=== PATIENT | female | born 1970 | race Caucasian/White ===

== ENCOUNTER 2017-08-18 18:49 | Emergency (ER) | payer BC, MEDICAID ==
[~2017-08-18 18:49] MED LIST: CYCLOBENZAPRINE5 MG PO; NAPROXEN375 MG PO; ZOC10 PO
[2017-08-18 22:36] VITALS: BP 133/73
== END 2017-08-18 22:36 | disposition home or self-care (01) ==
LOC: ED 18:49
DX: J06.9 Acute upper respiratory infection, unspecified (principal)
CPT/HCPCS: J7613; J7644

== ENCOUNTER 2018-12-16 14:21 | Emergency (ER) | payer MEDICAID ==
[~2018-12-16] VITALS: Ht 152.4 cm; Wt 72.6 kg
[2018-12-16 18:02] LABS: BASOPHIL % 0.6 % (0-2); PLATELET COUNT 221 x10^3mcL (130-400); RED CELL DISTRIBUTION WIDTH 13.5 % (11.5-14.5)
[2018-12-16 18:11] LABS: CALCIUM 8.9 mg/dL (8.5-10.1); CARBON DIOXIDE 29.2 mmol/L (21-32); CHLORIDE SERUM 102 mmol/L (98-107); CREATININE SERUM 0.6 mg/dL (0.6-1.0); GFR1 > 60 mL/min; GLUCOSE SERUM 108 mg/dL (74-106); POTASSIUM SERUM 4.5 mmol/L (3.5-5.1); SODIUM SERUM 138 mmol/L (136-145)
[2018-12-16 18:17] LABS: ALBUMIN 3.8 g/dL (3.4-5.0); ALKALINE PHOSPHATASE 72 U/L (46-116); ALT/SGPT 27 U/L (14-59); AST/SGOT 18 U/L (15-37); BILIRUBIN TOTAL 0.3 mg/dL (0.20-1.00); TOTAL PROTEIN, SERUM 7.6 g/dL (6.4-8.2)
[2018-12-16 21:10] VITALS: BP 127/71
== END 2018-12-16 21:11 | disposition home or self-care (01) ==
LOC: ED 14:21
PROVIDERS: Specialist
DX: M94.0 Chondrocostal junction syndrome [Tietze] (principal); I10 Essential (primary) hypertension; J45.909 Unspecified asthma, uncomplicated
CPT/HCPCS: 36415; J1885; Q0092